=== PATIENT | female | born 1965 | race Caucasian/White ===

== ENCOUNTER 2023-03-28 11:56 | Emergency (ER) | payer OTHER, SELFPAY ==
[2023-03-28] VITALS (7 sets, daily range): BP systolic 119–160; BP diastolic 64–90; PULSE 55–78; RESP 16–21; TEMP 36.6; O2SAT 96–99; BMI 46.4
[2023-03-28 12:46] LABS: Amorphous Sediment Urine 2+; Bacteria Urine Moderate (10-30); Culture Indicated Urine Specimen Cultured; RBC Urine 0-1/HPF (0-5/HPF); Squamous Epithelial Cell Urine 0-1 /HPF (0-5/HPF); WBC Urine 1-5/HPF (0-5/HPF)
--- NOTE | 2023-03-28 13:09 | DI.RAD.S_ITS ---
PROCEDURE: XR CHEST 1V INDICATIONS: chest pain TECHNIQUE: One view of the chest was acquired. COMPARISON: None. FINDINGS: Surgical changes and devices: None. Lungs and pleura: Lungs are clear. No pleural effusions or pneumothorax. Mediastinum: Mediastinal contours appear normal. Heart size is normal. Bones and chest wall: No suspicious bony lesions. Overlying soft tissues appear unremarkable. IMPRESSION: No acute cardiopulmonary abnormality. Approved by: Andry Brambila M.D. on 03/28/2023 at 14:35
--- NOTE | 2023-03-28 13:11 | ED_ITS ---
HPI - Arrhythmia/Palpitations General Chief Complaint: Arrhythmia/Palpitations Stated Complaint: BP high/lightheadedness/rapid HR Time Seen by Provider: 03/28/23 12:02 History of Present Illness HPI narrative: 57-year-old female nonsmoker with history of AFib on anticoagulation and dilti azem for rate control presents for evaluation of multiple days if not weeks of frequent episodes of racing heart and lightheadedness. She states that typically this seems to happen either when she stands up or has been on her feet for a bit. She states it is significantly worse over the past few days and admits that she is started a preoperative diet that is low carb low-fat prior to getting a gastric sleeve next week. She denies fever or chills. She denies any recent AFib episodes. She denies chest pain or shortness of breath. Related Data Allergies Allergy/AdvReac Type Severity Reaction Status Date / Time No Known Drug Allergies Allergy Verified 03/28/23 12:12 Review of Systems Review of Systems Narrative: GENERAL: Denies chills, fatigue, malaise, fever, sweats. HEENT: Denies sinus pain, ear pain, sore throat, difficulty swallowing, dizziness. RESPIRATORY: Denies dyspnea, cough, wheezing, hemoptysis, sputum. CARDIOVASCULAR: See HPI GASTROINTESTINAL: Denies nausea, vomiting, abdominal pain, diarrhea, constipation, melena. : Denies dysuria, frequency, incontinence, hematuria, urinary retention. MUSCULOSKELETAL: denies weakness, joint pain, or bony pain SKIN: Denies rash, skin lesions, or other NEUROLOGIC: Denies weakness, headache, numbness, change in speech, confusion, seizures, incoordination. PSYCHIATRIC: No concerning psychosocial issues. 12 point review of systems is negative except for those stated above Patient History Social History Smoking Status: Never smoker Smoking Status: Never smoker Substance Use Type: does not use Exam Narrative Exam Narrative: GENERAL: [57] year old patient appears stated age. Well-developed patient, in mild distress. HEAD: Atraumatic. Normocephalic. EYES: Pupils equal round and reactive. Extraocular motions intact. No scleral icterus. No injection or drainage. ENT: Nose without bleeding, purulent drainage. Throat without erythema, tonsillar hypertrophy or exudate. Airway patent. NECK: Trachea midline. Non tender CARDIOVASCULAR: Regular rate and rhythm without murmurs, gallops, or rubs. RESPIRATORY: Clear to auscultation. Breath sounds equal bilaterally. No wheezes, rales, or rhonchi. GASTROINTESTINAL: Abdomen soft, non-tender, nondistended. EXTREMITIES: No edema or joint tenderness. BACK: Nontender without deformity or crepitance. No flank tenderness. NEURO: AOx3. SKIN: No rash or erythema of visible areas Initial Vital Signs Initial Vital Signs: Vital Signs Temperature 97.8 F 03/28/23 12:03 Pulse Rate 78 03/28/23 12:03 Respiratory Rate 18 03/28/23 12:03 Blood Pressure 160/90 H 03/28/23 12:03 Pulse Oximetry 98 03/28/23 12:03 Oxygen Delivery Method Room Air 03/28/23 12:03 Course Orders Ordered: Discontinued Medications Sodium Chloride (Normal Saline 0.9%) 1,000 mls @ 1,000 mls/hr IV BOLUS ONE Stop: 03/28/23 14:18 Last Infusion: 03/28/23 14:22 Dose: 0 mls/hr Documented By: Admin: 03/28/23 13:34 Dose: 1,000 mls/hr Documented By: TOM Vital Signs Vital signs: Vital Signs - 8 hr 03/28/23 12:03 03/28/23 12:13 Temperature 97.8 F Pulse Rate 78 66 Respiratory Rate 18 Blood Pressure 160/90 H Pulse Oximetry 98 96 Oxygen Delivery Method Room Air MDM - Arrhythmia/Palpitations Lab Data 03/28/23 12:10 03/28/23 12:10 Labs: Lab Results 03/28/23 03/28/23 03/28/23 Range/Units 12:04 12:10 12:10 WBC 13.2 H (4.5-11.0) X10^3/uL RBC 5.32 H (4.0-5.2) X10^6/uL Hgb 15.8 (12.0-16.0) g/dL Hct 47.2 H (36-46) % MCV 88.6 (80-100) fL MCH 29.6 (26-34) PG MCHC 33.4 (30-36) % RDW 13.3 (11.6-14.8) % Plt Count 287 (150-400) X10^3/uL Neut % (Auto) 70.5 (50-75) % Lymph % (Auto) 21.0 L (25-40) % [place] % (Auto) 6.7 (3-14) % Eos % (Auto) 0.9 L (2-4) % Baso % (Auto) 0.9 (0-2) % Neut # (Auto) 9300 H (5323-3346) /uL Lymph # (Auto) 2800 (8130-9420) /uL [place] # (Auto) 900 (0-900) /uL Eos # (Auto) 100 (0-450) /uL Baso # (Auto) 100 (0-100) /uL PT 13.8 H (10.1-12.7) SECONDS INR 1.2 (0.9-1.3) APTT 64 H (26-36) SECONDS Sodium (137-145) mmol/L Potassium (3.4-5.1) mmol/L Chloride (98-107) mmol/L Carbon Dioxide (22-32) mmol/L BUN (7-17) mg/dL Creatinine (0.52-1.04) mg/dL Estimated GFR (>60) mL/min BUN/Creatinine Ratio (6-22) Glucose (70-100) mg/dL Calcium (8.4-10.2) mg/dL Magnesium (1.6-2.3) mg/dL Total Bilirubin (0.2-1.3) mg/dL AST (14-36) IU/L ALT (<35) IU/L Alkaline Phosphatase (38-126) U/L Total Creatine Kinase (30-135) U/L Troponin I (0.01-0.034) ng/mL Total Protein (6.3-8.2) g/dL Albumin (3.5-5.0) g/dL Globulin (1.7-4.1) g/dL Albumin/Globulin Ratio (1.0-2.8) Lipase (23-300) U/L Urine RBC 0-1/hpf (0-5/HPF) Urine WBC 1-5/hpf (0-5/HPF) Ur Squamous Epith Cells 0-1 /hpf (0-5/HPF) Amorphous Sediment 2+ Urine Bacteria Moderate (10-30) H (None) Ur Culture Indicated? Specimen cultured 03/28/23 Range/Units 12:10 WBC (4.5-11.0) X10^3/uL RBC (4.0-5.2) X10^6/uL Hgb (12.0-16.0) g/dL Hct (36-46) % MCV (80-100) fL MCH (26-34) PG MCHC (30-36) % RDW (11.6-14.8) % Plt Count (150-400) X10^3/uL Neut % (Auto) (50-75) % Lymph % (Auto) (25-40) % [place] % (Auto) (3-14) % Eos % (Auto) (2-4) % Baso % (Auto) (0-2) % Neut # (Auto) (9904-5623) /uL Lymph # (Auto) (7524-7804) /uL [place] # (Auto) (0-900) /uL Eos # (Auto) (0-450) /uL Baso # (Auto) (0-100) /uL PT (10.1-12.7) SECONDS INR (0.9-1.3) APTT (26-36) SECONDS Sodium 138 (137-145) mmol/L Potassium 3.9 (3.4-5.1) mmol/L Chloride 105 (98-107) mmol/L Carbon Dioxide 28 (22-32) mmol/L BUN 20 H (7-17) mg/dL Creatinine 0.69 (0.52-1.04) mg/dL Estimated GFR > 60 (>60) mL/min BUN/Creatinine Ratio 29.0 H (6-22) Glucose 91 (70-100) mg/dL Calcium 9.7 (8.4-10.2) mg/dL Magnesium 2.1 (1.6-2.3) mg/dL Total Bilirubin 0.9 (0.2-1.3) mg/dL AST 30 (14-36) IU/L ALT 16 (<35) IU/L Alkaline Phosphatase 80 (38-126) U/L Total Creatine Kinase 56 (30-135) U/L Troponin I < 0.012 (0.01-0.034) ng/mL Total Protein 8.1 (6.3-8.2) g/dL Albumin 4.4 (3.5-5.0) g/dL Globulin 3.7 (1.7-4.1) g/dL Albumin/Globulin Ratio 1.2 (1.0-2.8) Lipase 129 (23-300) U/L Urine RBC (0-5/HPF) Urine WBC (0-5/HPF) Ur Squamous Epith Cells (0-5/HPF) Amorphous Sediment Urine Bacteria (None) Ur Culture Indicated? Urine Dip Bedside Urine Glucose Negative Bedside Urine Bilirubin - Negative Bedside Urine Ketone - Negative Urine Specific Duncan 1.010 Bedside Urine Occult Blood + Bedside Urine pH 6.0 Bedside Urine Protein - Negative Bedside Urine Urobilinogen - Negative Bedside Urine Nitrite - Negative Bedside Urine Leukocytes - Negative Esterase MDM Narrative Medical decision making narrative: [57] year old patient presents with palpitations with associated high blood pressure Multiple etiologies for patient's symptoms considered including, but not limited to: [Atrial fibrillation versus other tachyarrhythmia versus cardiac ischemia versus] electrolyte abnormality versus other Prior Charts reviewed in our EMR Primary Historian: patient Labs reviewed and interpreted by myself: Slight leukocytosis without true left shift of uncertain etiology, no signs of infection such as fever chills. No signs of anemia, electrolytes and renal function at baseline, troponin unremarkable Imaging reviewed: Chest x-ray demonstrates no acute cardiopulmonary abnormality Patient's symptoms improved over duration of stay with above-stated therapies. Her history and physical exam are very reassuring, stable vitals for the duration of her visit. Multiple diagnoses considered as noted above. Cardiac ischemia thought unlikely given lack of exertional symptoms, exercise intolerance, nonischemic EKG and negative troponin. Various tachyarrhythmias considered, however none noted on monitoring or on the EKG. No specific treatment or intervention indicated at this time. Patient appropriate for discharge Findings and discharge diagnosis discussed with patient/family followed by verbalization of understanding Return precautions discussed with patient/family whom verbalize understanding of diagnosis and plan Discharge Plan Departure Patient Disposition: Home Clinical Impression: Palpitations, Hypertension Instructions: DI for Palpitations Activity Restrictions/Additional Instructions: *You have been diagnosed with [palpitations and hypertension, thankfully both resolved. Your history and physical exam as well as labs are very reassuring and there are no significant abnormal findings that would require a specific or immediate intervention] *What to do: *Please continue to take your regular medications as directed. [ ] New medication prescriptions sent to your pharmacy: [ ] [ ] New medication written as a paper prescription [ ] No new medications given *Please follow up with your primary care provider in 2-3 days, call for an appointment. Let them know you were seen in the Emergency Department and that we ask that you be seen in follow up. We will electronically transmit a record of today's note if your PCP is in our system *If you do not have a primary care provider please contact the [facility] Resource line at [phone]. They will ask some questions about your medical history and help get you set up with a doctor in the community. *Return to Emergency Department if you should have any new, worsening or concerning symptoms, such as [fever greater than 101 F, shaking chills, worsening pain, persistent vomiting or other bothersome symptoms] Referrals: Miscellaneous,Doctor, MD [Primary Care Provider] - Stand Alone Forms: Patient Portal/API
[2023-03-28 13:15] LABS: Add Manual Diff / Slide Review NO; Basophils Absolute Auto 100 /uL (0-100); Basophils Percent Auto 0.9 % (0-2); Eosinophils Absolute Auto 100 /uL (0-450); Eosinophils Percent Auto 0.9 % (2-4); Hematocrit 47.2 % (36-46); Hemoglobin 15.8 g/dL (12.0-16.0); Lymphocytes Absolute Auto 2800 /uL (1100-4500); Mean Corpuscular HGB Conc 33.4 % (30-36); Mean Corpuscular Hemoglobin 29.6 PG (26-34); Mean Corpuscular Volume 88.6 fL (80-100); Monocytes Absolute Auto 900 /uL (0-900); Monocytes Percent Auto 6.7 % (3-14); Neutrophils Absolute Auto 9300 /uL (1500-7000); Neutrophils Percent Auto 70.5 % (50-75); Platelet Count 287 X10^3/uL (150-400); Red Blood Cell Count 5.32 X10^6/uL (4.0-5.2); Red Cell Distribution Width 13.3 % (11.6-14.8); White Blood Cell Count 13.2 X10^3/uL (4.5-11.0)
[2023-03-28 13:17] LABS: INR 1.2 (0.9-1.3); Prothrombin Time 13.8 SECONDS (10.1-12.7)
[2023-03-28 13:19] LABS: PTT Partial Thromboplastin Tim 64 SECONDS (26-36)
[2023-03-28 13:20] LABS: Alanine Aminotransferase 16 IU/L (<35); Albumin 4.4 g/dL (3.5-5.0); Albumin Globulin Ratio 1.2 (1.0-2.8); Alkaline Phosphatase 80 U/L (38-126); Aspartate Aminotransferase 30 IU/L (14-36); Bilirubin Total 0.9 mg/dL (0.2-1.3); Blood Urea Nitrogen 20 mg/dL (7-17); Calcium 9.7 mg/dL (8.4-10.2); Carbon Dioxide 28 mmol/L (22-32); Chloride 105 mmol/L (98-107); Creatine Kinase 56 U/L (30-135); Estimated Glomerular Filt Rate > 60 mL/min (>60); Globulin 3.7 g/dL (1.7-4.1); Glucose 91 mg/dL (70-100); HEMOLYSIS < 15 (0-50); Lipase 129 U/L (23-300); Magnesium 2.1 mg/dL (1.6-2.3); Potassium 3.9 mmol/L (3.4-5.1); Sodium 138 mmol/L (137-145); Total Protein 8.1 g/dL (6.3-8.2)
[2023-03-28 13:32] LABS: Troponin I < 0.012 ng/mL (0.01-0.034)
[2023-03-28] MEDS: SODIUM CHLORIDE 0.9% 1,000 ML 1000 ML IV (13:34)
== END 2023-03-28 14:21 | disposition home or self-care (01) ==
PROVIDERS: Emergency Provider Emergency Medicine
DX: R00.2 Palpitations (principal); I10 Essential (primary) hypertension
CPT/HCPCS: 36415; 71045; 80053; 81003; 81015; 82550; 83690; 83735; 84484; 85025; 85610; 85730; 87086; 93005; 96360; 99284

== ENCOUNTER → 2023-04-13 17:29 | Outpatient (CLI) | payer OTHER, SELFPAY | PROVIDERS: Visit Provider Physician Assistant | DX: J02.9 Acute pharyngitis, unspecified (principal) | CPT/HCPCS: 87070 ==

== ENCOUNTER → 2023-05-20 09:11 | Outpatient (CLI) | payer OTHER, SELFPAY ==
[2023-05-20 10:33] LABS: Add Manual Diff / Slide Review NO; Basophils Absolute Auto 100 /uL (0-100); Basophils Percent Auto 0.8 % (0-2); Eosinophils Absolute Auto 200 /uL (0-450); Eosinophils Percent Auto 1.9 % (2-4); Hematocrit 46.6 % (36-46); Hemoglobin 15.5 g/dL (12.0-16.0); Lymphocytes Absolute Auto 2100 /uL (1100-4500); Lymphocytes Percent Auto 18.9 % (25-40); Mean Corpuscular HGB Conc 33.4 % (30-36); Mean Corpuscular Hemoglobin 29.4 PG (26-34); Mean Corpuscular Volume 88.2 fL (80-100); Monocytes Absolute Auto 900 /uL (0-900); Monocytes Percent Auto 7.7 % (3-14); Neutrophils Absolute Auto 7900 /uL (1500-7000); Neutrophils Percent Auto 70.7 % (50-75); Platelet Count 222 X10^3/uL (150-400); Red Blood Cell Count 5.28 X10^6/uL (4.0-5.2); Red Cell Distribution Width 14.3 % (11.6-14.8); White Blood Cell Count 11.1 X10^3/uL (4.5-11.0)
[2023-05-20 10:45] LABS: Alanine Aminotransferase 16 IU/L (<35); Albumin Globulin Ratio 1.2 (1.0-2.8); Alkaline Phosphatase 63 U/L (38-126); Aspartate Aminotransferase 30 IU/L (14-36); BUN Creatinine Ratio 12.5 (6-22); Bilirubin Total 1.1 mg/dL (0.2-1.3); Blood Urea Nitrogen 8 mg/dL (7-17); Calcium 9.8 mg/dL (8.4-10.2); Carbon Dioxide 25 mmol/L (22-32); Chloride 102 mmol/L (98-107); Estimated Glomerular Filt Rate > 60 mL/min (>60); Globulin 3.3 g/dL (1.7-4.1); Glucose 99 mg/dL (70-100); HEMOLYSIS 26 (0-50); Potassium 3.6 mmol/L (3.4-5.1); Sodium 136 mmol/L (137-145); Total Protein 7.3 g/dL (6.3-8.2)
== END ==
PROVIDERS: PCP Physician Assistant; Referring Provider Physician Assistant; Visit Provider Physician Assistant
DX: R11.0 Nausea (principal)
CPT/HCPCS: 36415; 80053; 85025

== ENCOUNTER → 2023-06-02 11:42 | Outpatient (CLI) | payer OTHER, SELFPAY ==
--- NOTE | 2023-06-02 | DI.RAD.S_ITS ---
PROCEDURE: XR ABDOMEN MIN 2V INDICATIONS: chronic gastritis, constipation TECHNIQUE: 2 views of the abdomen were acquired. COMPARISON: None. FINDINGS: Surgical changes and devices: None. Bowel: No pneumoperitoneum. The bowel gas pattern is normal. Mildly increased quantity of stool. Soft tissues: No masses; visualized solid organ contours appear normal in size. No suspicious abdominal calcifications. Bones: No suspicious bony abnormalities. IMPRESSION: Nonspecific, nonobstructive bowel gas pattern with mildly increased quantity of stool present. Dictated by: Missy Vásquez M.D. on 06/02/2023 at 18:22 Approved by: Missy Vásquez M.D. on 06/02/2023 at 18:23
[2023-06-02 13:51] LABS: C-Reactive Protein Quant 0.9 mg/dL (<1.0); Lipase 204 U/L (23-300); Magnesium 2.2 mg/dL (1.6-2.3); Phosphorous 3.5 mg/dL (2.5-4.5)
[2023-06-02 14:11] LABS: Thyroid Stimulating Hormone 2.25 uIU/mL (0.47-4.68)
[2023-06-02 14:28] LABS: Vitamin B12 > 1000 pg/mL (239-931)
[2023-06-03 06:00] LABS: Immunoglobulin A 259 mg/dL (87-352)
[2023-06-03 20:38] LABS: Tissue Transglutaminase IgA <2 U/mL (0-3)
== END ==
PROVIDERS: PCP Physician Assistant; Referring Provider Nurse Practitioner Acute Care; Visit Provider Nurse Practitioner Acute Care
DX: K29.50 Unspecified chronic gastritis without bleeding (principal); K59.09 Other constipation
CPT/HCPCS: 36415; 74019; 82306; 82607; 82784; 83516; 83690; 83735; 84100; 84443; 86140

== ENCOUNTER → 2023-06-03 10:25 | Outpatient (CLI) | payer OTHER, SELFPAY ==
[2023-06-09 09:18] LABS: Calprotectin, Stool 170 ug/g (0-120)
[2023-06-14 17:28] LABS: Pancreatic Elastase, Fecal 56 (>200)
== END ==
PROVIDERS: PCP Physician Assistant; Referring Provider Nurse Practitioner Acute Care; Visit Provider Nurse Practitioner Acute Care
DX: K29.50 Unspecified chronic gastritis without bleeding (principal); K59.09 Other constipation
CPT/HCPCS: 82656; 83993; 87045; 87177; 87329; 87899

== ENCOUNTER 2023-07-01 08:04 | Emergency (ER) | payer OTHER, SELFPAY ==
[2023-07-01 08:19] VITALS: BP 127/82; PULSE 85; RESP 20; TEMP 36.8; O2SAT 98; BMI 38.5
--- NOTE | 2023-07-01 08:52 | DI.RAD.S_ITS ---
PROCEDURE: XR CHEST 2V INDICATIONS: difficulty breathing TECHNIQUE: 2 views of the chest were acquired. COMPARISON: [facility], CR, XR CHEST 1V, 03/28/2023, 13:30. FINDINGS: Surgical changes and devices: None. Lungs and pleura: Lungs are clear. No pleural effusions or pneumothorax. Mediastinum: Mediastinal contours are normal. Heart size is normal. Bones and chest wall: No suspicious bony abnormalities. Soft tissues appear unremarkable. IMPRESSION: No acute cardiopulmonary abnormality is seen. Dictated by: Rylie Ly M.D. on 07/01/2023 at 9:18 Approved by: Rylie Ly M.D. on 07/01/2023 at 9:18
[2023-07-01 09:21] LABS: COVID-19 CEPHEID 4-PLEX PCR Negative (Negative); Influenza A - CEPHEID Flu A NEGATIVE (NEGATIVE); Influenza B - CEPHEID Flu B NEGATIVE (NEGATIVE); Respiratory Syncytial Virus POSITIVE (Negative)
--- NOTE | 2023-07-01 10:53 | ED.SOB ---
HPI - SOB/Dyspnea General Chief Complaint: Upper Respiratory Symptoms Stated Complaint: bronchitis, diff breathing Time Seen by Provider: 07/01/23 08:52 Source: patient, RN notes reviewed and old records reviewed Mode of arrival: Ambulatory Limitations: no limitations History of Present Illness HPI Narrative: 58-year-old female nonsmoker with history of atrial fibrillation on anticoagulation and diltiazem, asthma who presents with complaint of nasal congestion, cough and wheezing for the past 3 days. Patient states no fevers. She started with nasal congestion started to get tight and wheezy in her chest in the last day. Patient states she is not had any pain. She denies any nausea or vomiting. No sore throat. She is felt short of breath. She denies any swelling of her extremities. No diarrhea constipation, no urinary symptoms. Patient states she is taken Mucinex [id number] and did 2 nebs this morning which initially did not seem helpful but she feels better now. She states she is had quite a bit of nasal congestion. Patient states no known drug allergies. She has not had any sensation of palpation or irregular heartbeat. No tobacco, alcohol or illicit. Related Data Previous Rx's Medication Instructions Recorded albuterol sulfate 2.5 mg/3 mL 2.5 mg (3 mL) inhalation QID PRN 07/01/23 (0.083 %) solution for nebulization shortness of breath or wheezing #90 mL prednisone 10 mg tablets in a dose See Rx Instructions PO .COMPLEX 07/01/23 pack #21 ea Allergies Allergy/AdvReac Type Severity Reaction Status Date / Time No Known Drug Allergies Allergy Verified 04/13/23 16:12 Review of Systems Review of Systems ROS Unobtainable: All systems reviewed & are unremarkable except as noted in HPI and below Patient History Social History Smoking Status: Never smoker Smoking Status: Never smoker Substance Use Type: does not use Exam Narrative Exam Narrative: GEN: well nourished, well appearing female, alert and oriented x 3, patient appears to be in mild distress. HEENT: Atraumatic, pupils are equal round reactive to light, extraocular movements are intact, nares bilateral clear rhinorrhea, there is no conjunctival pallor. HEART: Regular rate and rhythm without murmur, clicks, rubs. No carotid bruits, pulses are equal in upper and lower extremities. No edema bilateral lower extremities. LUNGS:Lungs slightly coarse bilaterally but good aeration throughout bilaterally, no wheezes except very faint and right base, no rales, crackles, chest moves symmetrically, no tachypnea accessory muscle use. Patient does have a wet cough. ABD:bowel sounds normal, soft, non-tender, no guarding, rebound, rigidity, no masses noted, no hepatosplenomegaly :No CVA tenderness MSCL: Full range of motion, normal gait NEURO:CN 2-12 intact, sensation normal Initial Vital Signs Initial Vital Signs: Vital Signs Temperature 98.3 F 07/01/23 08:19 Pulse Rate 85 07/01/23 08:19 Respiratory Rate 20 07/01/23 08:19 Blood Pressure 127/82 07/01/23 08:19 Pulse Oximetry 98 07/01/23 08:19 Oxygen Delivery Method Room Air 07/01/23 08:19 Course Orders Ordered: ED Orders 07/01/23 08:00 Covid-19 + FLU A/B + RSV - PCR Stat 07/01/23 08:52 Chest [XR chest 2V] Stat Discontinued Medications Prednisone (Prednisone 20 Mg Tablet) 60 mg PO NOW ONE Stop: 07/01/23 11:04 Last Admin: 07/01/23 11:16 Dose: 60 mg Documented By: HERBERT Vital Signs Vital signs: Vital Signs - 8 hr 07/01/23 08:19 07/01/23 11:24 Temperature 98.3 F Pulse Rate 85 79 Respiratory Rate 20 18 Blood Pressure 127/82 149/96 H Pulse Oximetry 98 97 Oxygen Delivery Method Room Air Room Air MDM - SOB/Dyspnea Lab Data Labs: Lab Results 07/01/23 Range/Units 08:00 SARS-CoV-2 (PCR) Negative (Negative) Influenza A (RT-PCR) Flu a negative (NEGATIVE) Influenza B (RT-PCR) Flu b negative (NEGATIVE) RSV (PCR) Positive A (Negative) Imaging Data Chest x-ray: Radiologist's Impression: Close Chest X-Ray (Signed) Rylie Ly - 07/01/23 Abdomen X-Ray (Signed) Missy Vásquez - 06/02/23 Chest X-Ray (Signed) Andry Brambila - 03/28/[address] [address] XRay Report Signed Patient: Lindy Cardoso MR#: [id number] : 1965 Acct:[id number] Age/Sex: 58 / F Date of Service: 07/01/23 Loc: ED Accession Number: [id number] Procedure: XR chest 2V Ordering Provider: Aby Vazquez D.O. PROCEDURE: XR CHEST 2V INDICATIONS: difficulty breathing TECHNIQUE: 2 views of the chest were acquired. COMPARISON: [facility], , XR CHEST 1V, 03/28/2023, 13:30. FINDINGS: Surgical changes and devices: None. Lungs and pleura: Lungs are clear. No pleural effusions or pneumothorax. Mediastinum: Mediastinal contours are normal. Heart size is normal. Bones and chest wall: No suspicious bony abnormalities. Soft tissues appear unremarkable. IMPRESSION: No acute cardiopulmonary abnormality is seen. Dictated by: Rylie Ly M.D. on 07/01/2023 at 9:18 Approved by: Rylie Ly M.D. on 07/01/2023 at 9:18 [facility] Narrative Medical decision making narrative: 58-year-old female with history of atrial fibrillation on anticoagulation patient presents with nasal congestion tested positive for RSV on for flex swab. She is had increasing tightness wheezing feels little bit improved after DuoNebs at home. Patient does not have active wheeze currently on exam accept very faintly in the right base. Chest x-ray was obtained as clear for any pneumonia or edema. Patient clearly has upper respiratory infection likely exacerbating her known asthma history. She does not appear to have any CHF require further workup at this time. Discussed with patient we will start her on oral steroids she is had these in the past and tolerated them well. No antibiotics she does not have any obvious pneumonia or bacterial infection. Reviewed expected timeframe, she can continue to use Mucinex if she likes I would recommend antihistamine such as loratadine [id number]. Discussed return precautions. Patient feels comfortable with this plan. She does have a nebulizer at home and would like refill of her albuterol vials. Discharge Plan Departure Patient Disposition: Home Clinical Impression: RSV infection, Asthma with acute exacerbation Instructions: DI for Respiratory Syncytial Virus -- Adults Activity Restrictions/Additional Instructions: Follow up for recheck if your symptoms are not improving over the next week. You did test positive for RSV this is a common viral infection that can affect your airways and cause wheezing and tightness in asthmatics. Take steroids daily until gone. Continue to use your albuterol every 4 hours as needed. You can take an [id number] antihistamine such as loratadine once daily. Prescription sent to [facility] in [place]. Please return for new or worsening chest pain, shortness of breath, lightheadedness or passing out, new swelling in your extremities or other new or concerning changes. Prescriptions: New prednisone 10 mg tablets,dose pack See Rx Instructions .ROUTE .COMPLEX Qty: 21 0RF Rx Instructions: Take 5 tablets p.o. x1 day, then 4 tablets p.o. x1 day, then 3 tablets p.o. x1 day, then 2 tablets p.o. x1 day, then 1 tablet p.o. x1 day albuterol sulfate 2.5 mg /3 mL (0.083 %) solution for nebulization 2.5 mg inhalation QID PRN (Reason: shortness of breath or wheezing) Qty: 90 0RF Referrals: Yazan Casarez PA-C [Primary Care Provider] - Stand Alone Forms: Patient Portal/API
[2023-07-01] MEDS: predniSONE 20 MG TABLET 60 MG PO (11:16)
[2023-07-01 11:24] VITALS: BP 149/96; PULSE 79; RESP 18; O2SAT 97
== END 2023-07-01 11:24 | disposition home or self-care (01) ==
PROVIDERS: Emergency Provider Emergency Medicine; PCP Physician Assistant
DX: J45.901 Unspecified asthma with (acute) exacerbation (principal); B97.4 Respiratory syncytial virus as the cause of diseases classified elsewhere; J98.8 Other specified respiratory disorders
CPT/HCPCS: 0241U; 71046; 99283

== ENCOUNTER → 2023-09-05 09:03 | Outpatient (CLI) | payer BC, SELFPAY ==
[2023-09-05 11:13] LABS: Cholesterol 218 mg/dL (140-199); HDL Cholesterol 59 mg/dL (40-60); LDL Cholesterol Calculated 143 mg/dL (<100); Triglycerides 81 mg/dL (35-150)
== END ==
LOC: LAB 09:05
PROVIDERS: PCP Physician Assistant; Referring Provider Physician Assistant; Visit Provider Physician Assistant
DX: Z13.220 Encounter for screening for lipoid disorders (principal)
CPT/HCPCS: 36415; 80061

== ENCOUNTER → 2023-09-15 13:45 | Outpatient (CLI) | payer BC, SELFPAY ==
--- NOTE | 2023-09-15 | DI.MG.S_ITS ---
BILATERAL DIGITAL SCREENING MAMMOGRAM 3D/2D WITH CAD: 09/15/2023 CLINICAL: Routine screening. Baseline by default--No prior available. No prior exams were available for comparison. There are scattered areas of fibroglandular density in both breasts (category b / 25%-50% glandular tissue). Current study was also evaluated with a Computer Aided Detection (CAD) system. There is an oval mass in the right breast at 5 o'clock anterior depth. There also is a focal asymmetry in the right breast central to the nipple middle depth. There is a focal asymmetry in the left breast at 4 o'clock middle depth. No other significant masses or calcifications are seen in either breast. IMPRESSION: INCOMPLETE: NEEDS ADDITIONAL IMAGING EVALUATION The oval mass in the right breast at 5 o'clock anterior depth is indeterminate. Additional views with possible ultrasound are recommended. The focal asymmetry in the right breast central to the nipple middle depth is indeterminate. Additional views with possible ultrasound are recommended. The focal asymmetry in the left breast at 4 o'clock middle depth is indeterminate. Additional views with possible ultrasound are recommended. Based on the Tyrer Cuzick model (a risk assessment model) the patient's lifetime risk is 7.5% and her 10 year risk is 2.9%. According to the ACR, ACS, and NCCN guidelines, an annual breast MRI exam along with mammogram is recommended if the patient's lifetime risk is 20% or greater. This exam was interpreted at Station ID: [id number]. NOTE: For mammograms, a report in lay terms will be sent to the patient. Approximately 15% of breast malignancies will not be visualized mammographically. In the management of a palpable breast mass, a negative mammogram must not discourage biopsy of a clinically suspicious lesion. Electronically Signed By: Dillon Pastor M.D. lc/:09/15/2023 16:30:47 letter sent: Additional Imaging Needed ACR BI-RADS Category 0: Incomplete 3340F
== END ==
PROVIDERS: PCP Physician Assistant; Referring Provider Physician Assistant; Visit Provider Physician Assistant
DX: Z12.31 Encounter for screening mammogram for malignant neoplasm of breast (principal); R92.323 Mammographic fibroglandular density, bilateral breasts
CPT/HCPCS: 77063; 77067

== ENCOUNTER → 2023-10-06 08:39 | Outpatient (CLI) | payer BC, SELFPAY ==
--- NOTE | 2023-10-06 08:40 | DI.US.S_ITS ---
ULTRASOUND OF RIGHT BREAST: 10/06/2023 CLINICAL: Patient returns today to evaluate a focal asymmetry in the right breast. No prior exams were available for comparison. Color flow and real-time ultrasound of the right breast were performed on the areas of interest. Bowers scale images of the real-time examination were reviewed. There is a round cyst in the right breast at 2 o'clock anterior depth. This round cyst is hypoechoic with a well-defined boundary and internal echoes. There are likely trace rim calcifications. This correlates with mammography findings. Color flow imaging demonstrates that there is no vascularity present. IMPRESSION: BENIGN There is no sonographic evidence of malignancy. The round cyst in the right breast is consistent with an oil cyst and is benign. Return to annual mammogram screening schedule is recommended. This exam was interpreted at Station ID: [id number]. Electronically Signed By: Rylie boyce/:10/06/2023 13:34:42 Entry: - 10/06/2023 13:34:42 letter sent: Normal Exam Ultrasound BI-RADS: 2 Benign
--- NOTE | 2023-10-06 08:40 | DI.MG.S_ITS ---
BILATERAL DIGITAL DIAGNOSTIC MAMMOGRAM 3D/2D WITH ADDITIONAL VIEWS: 10/06/2023 CLINICAL: Additional evaluation requested from prior study. Comparison is made to exam dated: 09/15/2023 mammogram - [facility]. There are scattered areas of fibroglandular density in both breasts (category b / 25%-50% glandular tissue). There is an oval mass in the right breast at 1 o'clock anterior depth. The focal asymmetry in the right breast central to the nipple middle depth is not seen in additional views. The focal asymmetry in the left breast at 4 o'clock middle depth is not seen in additional views. No other significant masses or calcifications are seen in either breast. IMPRESSION: INCOMPLETE: NEEDS ADDITIONAL IMAGING EVALUATION The oval mass in the right breast at 1 o'clock anterior depth likely represents a cyst and is indeterminate. A targeted ultrasound of the right breast is recommended and will be performed immediately following this exam. The focal asymmetry in the right breast central to the nipple middle depth seen on the screening mammogram likely respresents superimposed fibroglandular tissue and is benign. The focal asymmetry in the left breast at 4 o'clock middle depth seen on the screening mammogram likely respresents superimposed fibroglandular tissue and is benign. Based on the Tyrer Cuzick model (a risk assessment model) the patient's lifetime risk is 6.2% and her 10 year risk is 2.4%. According to the ACR, ACS, and NCCN guidelines, an annual breast MRI exam along with mammogram is recommended if the patient's lifetime risk is 20% or greater. This exam was interpreted at Station ID: [id number]. NOTE: For mammograms, a report in lay terms will be sent to the patient. Approximately 15% of breast malignancies will not be visualized mammographically. In the management of a palpable breast mass, a negative mammogram must not discourage biopsy of a clinically suspicious lesion. Electronically Signed By: Rylie boyce/:10/06/2023 09:26:50 ACR BI-RADS Category 0: Incomplete [id number]
== END ==
LOC: MAMMO 08:39
PROVIDERS: PCP Physician Assistant; Referring Provider Physician Assistant; Visit Provider Physician Assistant
DX: R92.8 Other abnormal and inconclusive findings on diagnostic imaging of breast (principal); N60.01 Solitary cyst of right breast
CPT/HCPCS: 76642; 77066; G0279

== ENCOUNTER → 2024-10-11 | Outpatient (CLI) | payer BC, SELFPAY ==
--- NOTE | 2024-10-11 16:46 | DI.MG.S_ITS ---
MM screening mammo BI: 10/11/2024. BI-RADS: 2 CLINICAL: 59-year old female for bilateral screening mammogram. Tyrer-Cuzick lifetime risk of 5.8%. No personal or first-degree family history of breast cancer. PRIOR EXAMS 10/06/2023, 09/15/2023. MAMMOGRAPHY TECHNIQUE: 2D and 3D (tomosynthesis) digital mammographic views obtained, with additional images as needed for full coverage. Current study was also evaluated with a Computer Aided Detection (CAD) system. DENSITY B. There are scattered areas of fibroglandular density. MAMMOGRAPHY FINDINGS Right: No suspicious mass, asymmetry, microcalcification, or other abnormality seen. No significant change from comparison. Left: Benign-appearing asymmetry noted on the left. There are no suspicious masses, calcifications, or other findings in the breast. No significant change from comparison. IMPRESSION: Right * No evidence of malignancy. Left * No evidence of malignancy with benign findings. RECOMMENDATIONS Bilateral * Annual screening mammography. OVERALL ASSESSMENT CATEGORY BI-RADS-2: Benign. The [employer] recommends annual screening mammography beginning at age 40 for women with average risk of breast cancer. ELECTRONICALLY SIGNED: Precious Xie M.D. on 10/13/2024 at 11:50:31 AM PT Interpreting Station ID: [id number]
== END ==
LOC: MAMMO 16:45
PROVIDERS: PCP Physician Assistant; Referring Provider Physician Assistant; Visit Provider Physician Assistant
DX: Z12.31 Encounter for screening mammogram for malignant neoplasm of breast (principal)
CPT/HCPCS: 77063; 77067

== ENCOUNTER → 2024-12-02 12:16 | Outpatient (CLI) | payer BC, SELFPAY | LOC: LAB 12:17 | PROVIDERS: PCP Physician Assistant; Visit Provider Physician Assistant | DX: J02.9 Acute pharyngitis, unspecified (principal) | CPT/HCPCS: 87070 ==